=== PATIENT | male | born 1985 | race Caucasian/White ===

== ENCOUNTER 2016-08-19 19:26 | Emergency (ER) | payer OTHER ==
[~2016-08-19] VITALS: Ht 180.3 cm; Wt 88.5 kg
[2016-08-19] MEDS ORDERED: IOHEXOL 240 MG/ML 50ML VIAL. PO ONE (20:00)
[2016-08-19] MEDS ORDERED: IOHEXOL 300 MG/ML 75 ML VIAL IV ONE (20:00)
[2016-08-19 20:07] LABS: BASO % 0 % (0-3); EOS % 1 % (0-3); HEMATOCRIT 46.5 % (39.0-53.0); LYMPH # 1.1 x10^3/uL (1.0-4.8); LYMPH % 11 % (24-48); MEAN CORPUSCULAR HEMOGLOBIN 32 pg (25-35); MEAN CORPUSCULAR HGB CONC 35 g/dL (31-37); MEAN CORPUSCULAR VOLUME 93 fL (79-100); MONO % 6 % (0-9); NEUT % 82 % (31-73); PLATELET COUNT 275 x10^3/uL (140-400); RED CELL DISTRIBUTION WIDTH 13.7 % (11.5-14.5); WHITE BLOOD COUNT 9.7 x10^3/uL (4.0-11.0)
[2016-08-19] MEDS ORDERED: fentaNYL PF VIAL 100 MCG/2 ML VIAL IV PRN (20:15)
[2016-08-19] MEDS ORDERED: IV NORMAL SALINE 1000ML BAG 1,000 ML IV SCH (20:15)
[2016-08-19 20:24] LABS: CALCIUM 8.8 mg/dL (8.5-10.1); CREATININE 1.2 mg/dL (0.7-1.3); GFR 70.6; POTASSIUM 3.7 mmol/L (3.5-5.1)
[2016-08-19 20:29] LABS: ALBUMIN 3.9 g/dL (3.4-5.0); ALBUMIN/GLOBULIN RATIO 1.3 (1.0-1.7); TOTAL BILIRUBIN 0.6 mg/dL (0.2-1.0)
[2016-08-19] MEDS ORDERED: ONDANSETRON PF 4 MG/2 ML VIAL. IV ONE (20:30)
--- NOTE | 2016-08-19 20:47 | PHYS DOC ---
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 At first felt like a crampy pain in the left upper quadrant and since then it has become more of a burning pain and it has become more generalized. He had a normal bowel movement about 9:00 this morning. No more bowel movement since then. He's had nausea with no vomiting. She also feels like he has "bad bloating". The pain has been constant during the day and worsened somewhat. He ate bratwurst first upper about 6:30 and it got worse. Patient has no history of pain like this in the past. He does have frequent "heartburn" when he lays flat and for that he takes [id number] Gaviscon at bedtime. He states he has had his esophagus dilated twice, once about 3 years ago and once about 5 years ago. He is not clear exactly why they thought he did have a stricture. They told him there was something wrong with his esophagus, they advised him to take Prilosec but "I didn't really believe in it " so he has not taken it. Denies previous abdominal surgeries. Review of Systems Review of Systems Constitutional: Denies fever or chills [] Eyes: Denies change in visual acuity, redness, or eye pain [] HENT: Denies nasal congestion or sore throat [] Respiratory: Denies cough or shortness of breath [] Cardiovascular: Denies chest pain GI: As in history of present illness : Denies dysuria or hematuria [] Musculoskeletal: Denies back pain or joint pain [] Integument: Denies rash or skin lesions [] Neurologic: Denies headache, focal weakness or sensory changes [] Current Medications Current Medications Current Medications Medications (Trade) Dose Ordered Sig/Ike Start Time Stop Time Status Last Admin Dose Admin Fentanyl Citrate (Fentanyl 2ml Vial) 50 mcg PRN Q15MIN PRN 08/19/16 20:15 08/20/16 20:14 08/19/16 20:14 50 MCG Iohexol (Omnipaque 240 Mg/ml) 30 ml 1X ONCE 08/19/16 20:00 08/19/16 20:01 DC 08/19/16 20:00 30 ML Iohexol (Omnipaque 300 Mg/ml) 75 ml 1X ONCE 08/19/16 20:00 08/19/16 20:01 DC 08/19/16 20:53 75 ML Ondansetron HCl (Zofran) 4 mg 1X ONCE 08/19/16 20:30 08/19/16 20:31 DC 08/19/16 20:14 4 MG Sodium Chloride 1,000 ml @ 1,000 mls/hr Q1H 08/19/16 20:15 08/19/16 21:14 DC 08/19/16 20:05 1,000 MLS/HR Allergies Allergies Allergies Coded Allergies Type Severity Reaction Last Updated Verified Penicillins Allergy Intermediate 08/19/16 Yes Physical Exam Physical Exam Constitutional: Well developed, well nourished, no acute distress, non-toxic appearance. Alert, mentating normally. HENT: Normocephalic, atraumatic, bilateral external ears normal, nose normal. [] Eyes: conjunctiva normal, no discharge. [] Neck: Normal range of motion, no stridor. [] Cardiovascular:Heart rate regular rhythm, no murmur [] Lungs & Thorax: Bilateral breath sounds clear to auscultation [] Abdomen: Bowel sounds normal, soft, nondistended, no increased tympany, no masses, no pulsatile masses. Mild tenderness to palpation and percussion throughout the abdomen. Tenderness is not localized. No rebound or guarding. Skin: Warm, dry, no erythema, no rash. [] Extremities: No tenderness, no cyanosis, no clubbing, ROM intact, no edema. [] Neurologic: Alert and oriented X 3, normal motor function, normal sensory function, no focal deficits noted. [] Current Patient Data Vital Signs Vital Signs Date Time Temp Pulse Resp B/P (MAP) Pulse Ox O2 Delivery O2 Flow Rate FiO2 08/19/16 20:16 80 14 180/97 (124) 98 Room Air 08/19/16 19:30 97.7 97.7 Lab Values Laboratory Tests Test 08/19/16 19:37 08/19/16 20:50 White Blood Count 9.7 x10^3/uL (4.0-11.0) Red Blood Count 5.00 x10^6/uL (4.30-5.70) Hemoglobin 16.0 g/dL (13.0-17.5) Hematocrit 46.5 % (39.0-53.0) Mean Corpuscular Volume 93 fL (79-100) Mean Corpuscular Hemoglobin 32 pg (25-35) Mean Corpuscular Hemoglobin Concent 35 g/dL (31-37) Red Cell Distribution Width 13.7 % (11.5-14.5) Platelet Count 275 x10^3/uL (140-400) Neutrophils (%) (Auto) 82 % (31-73) H Lymphocytes (%) (Auto) 11 % (24-48) L Monocytes (%) (Auto) 6 % (0-9) Eosinophils (%) (Auto) 1 % (0-3) Basophils (%) (Auto) 0 % (0-3) Neutrophils # (Auto) 7.9 x10^3uL (1.8-7.7) H Lymphocytes # (Auto) 1.1 x10^3/uL (1.0-4.8) Monocytes # (Auto) 0.6 x10^3/uL (0.0-1.1) Eosinophils # (Auto) 0.1 x10^3/uL (0.0-0.7) Basophils # (Auto) 0.0 x10^3/uL (0.0-0.2) Sodium Level 140 mmol/L (136-145) Potassium Level 3.7 mmol/L (3.5-5.1) Chloride Level 105 mmol/L (98-107) Carbon Dioxide Level 25 mmol/L (21-32) Anion Gap 10 (6-14) Blood Urea Nitrogen 16 mg/dL (8-26) Creatinine 1.2 mg/dL (0.7-1.3) Estimated GFR (Cockcroft-Gault) 70.6 BUN/Creatinine Ratio 13 (6-20) Glucose Level 123 mg/dL (70-99) H Calcium Level 8.8 mg/dL (8.5-10.1) Total Bilirubin 0.6 mg/dL (0.2-1.0) Aspartate Amino Transferase (AST) 38 U/L (15-37) H Alanine Aminotransferase (ALT) 62 U/L (16-63) Alkaline Phosphatase 38 U/L (46-116) L Total Protein 7.0 g/dL (6.4-8.2) Albumin 3.9 g/dL (3.4-5.0) Albumin/Globulin Ratio 1.3 (1.0-1.7) Lipase 189 U/L (73-393) Urine Collection Type Void Urine Color Yellow Urine Clarity Turbid Urine pH 8.5 Urine Specific [place] 1.020 Urine Protein Negative mg/dL (NEG-TRACE) Urine Glucose (UA) Negative mg/dL (NEG) Urine Ketones (Stick) Negative mg/dL (NEG) Urine Blood Negative (NEG) Urine Nitrite Negative (NEG) Urine Bilirubin Negative (NEG) Urine Urobilinogen Dipstick 0.2 mg/dL (0.2 mg/dL) Urine Leukocyte Esterase Negative (NEG) Urine RBC 0 /HPF (0-2) Urine WBC Rare /HPF (0-4) Urine Squamous Epithelial Cells Occ /LPF Urine Amorphous Sediment Present /HPF Urine Bacteria Few /HPF (0-FEW) Urine Mucus Slight /LPF Laboratory Tests 08/19/16 19:37 Laboratory Tests 08/19/16 19:37 EKG EKG [] Radiology/Procedures Radiology/Procedures CT scan of the abdomen and pelvis with oral and IV contrast read by the radiologist. No acute findings. [] Course & Med Decision Making Course & Med Decision Making Pertinent Labs and Imaging studies reviewed. (See chart for details) 30-year-old male with about 12 hours of burning/cramping generalized abdominal pain that has worsened somewhat is a day one on. I discussed with the patient we will get some labs and a CT scan with oral and IV contrast. He is agreeable to that plan. I offered him IV pain and nausea medicine as well as IV fluids, he initially declined the pain medicine but then decided he did want to take some. After IV fentanyl and Zofran, IV fluids, the patient states he feels much better. Labs, CT scan, unrevealing as to the cause of the patient's symptoms. I discussed with the patient and his the assessment and plan, see instructions for plan. [] Dragon Disclaimer Dragon Disclaimer This electronic medical record was generated, in whole or in part, using a voice recognition dictation system. Departure Departure Impression: Primary Impression: Abdominal pain, left upper quadrant Additional Impression: Gastritis Disposition: 01 HOME, SELF-CARE Condition: IMPROVED Referrals: ZEINA BHAGAT MD (PCP) Patient Instructions: Abdominal Pain (Nonspecific), Gastritis, Adult, Easy-to- Read Additional Instructions: As we discussed, labs and CT scan did not show any serious cause of your abdominal pain. Stomach inflammation, gastritis, excess stomach acid do not show on our tests in the emergency department. This could be the cause of your pain. I recommend purchasing an [id number] acid reducing medicine such as Nexium, Prilosec, or Protonix, and take as directed. For 2-3 days, stick with clear liquids, small amounts of bland foods, to rest your stomach. If worse, return for reevaluation. I recommend outpatient GI evaluation for chronic heartburn problems as well as this episode. Problem Qualifiers KAYLENE MARTINEZ MD Aug 19, 2016 20:46
[2016-08-19 20:59] LABS: BILIRUBIN,URINE NEGATIVE (NEG); GLUCOSE,URINE NEGATIVE (NEG); NITRITE,URINE NEGATIVE (NEG); PH,URINE 8.5; PROTEIN,URINE NEGATIVE (NEG-TRACE); UROBILINOGEN,URINE 0.2 mg/dL (0.2 mg/dL)
--- NOTE | 2016-08-19 21:11 | RAD ---
Indication: Left-sided abdominal pain. Axial imaging through the abdomen and pelvis was performed after the administration of intravenous and oral contrast. One or more of the following individualized dose reduction techniques were utilized for this examination: 1. Automated exposure control 2. Adjustment of the mA and/or kV according to patient size 3. Use of iterative reconstruction technique No prior studies are available for comparison. The lung bases are clear. The liver and gallbladder are unremarkable. The pancreas and spleen appear unremarkable. No adrenal mass is detected. The kidneys are unremarkable. The aorta is nonaneurysmal. The small and large bowel loops are normal caliber. There is no ascites. Bladder is unremarkable. No acute inflammatory process is detected. There appears to be a chronic deformity of the left ischium. IMPRESSION: No acute abnormality is detected. Electronically signed by: Armando Richards MD (08/19/2016 9:08 PM) [facility]
[2016-08-19 21:17] LABS: BACTERIA,URINE FEW /HPF (0-FEW); RBC,URINE 0 /HPF (0-2); SQUAMOUS EPITHELIAL CELL,UR OCC /LPF; WBC,URINE RARE /HPF (0-4)
[2016-08-19 21:39] VITALS: BP 141/71
== END 2016-08-19 21:48 | disposition home or self-care (01) ==
LOC: ER 19:26
DX: K29.70 Gastritis, unspecified, without bleeding (principal); K21.9 Gastro-esophageal reflux disease without esophagitis; Z88.0 Allergy status to penicillin
CPT/HCPCS: 36415; 74177; 80053; 81001; 83690; 85027; 96361; 96374; 96375; 99285; J2405; J3010; J7030; Q9966; Q9967

== ENCOUNTER → 2016-09-28 | Outpatient (CLI) | payer OTHER ==
--- NOTE | 2016-09-30 15:26 | SLEEP ---
DATE OF STUDY: 09/29/2016 HOME SLEEP STUDY REFERRED BY: BRODIE Denney. The patient is a 30 years old who weighs 196 pounds with a BMI of 27. Vista score was 11. Home sleep study was performed by [facility]. During the night study, the patient's total recording time was 319 minutes. The patient had 1 central, 3 obstructive, and 3 mixed apneas and there were 14 hypopneas. The patient's apnea-hypopnea index was 4 per hour, supine index 4 per hour. Nocturnal oximetry study revealed no clinically significant desaturations. Mean heart rate was 63 beats per minute. IMPRESSION: 1. No clinically significant sleep-disordered breathing. 2. No clinically significant nocturnal hypoxia. RECOMMENDATIONS: 1. The patient did not meet the criteria for CPAP initiation. 2. Weight loss is advised. 3. Avoid [employer] depressants. LD ESTEVES MD DR: JOVANNI/tae JOB#: [id number] / [id number] EUNICE Valle MTDD
== END | disposition home or self-care (01) ==
LOC: RT 08:09
PROVIDERS: ATTEND Physician Assistant
DX: G47.33 Obstructive sleep apnea (adult) (pediatric) (principal); H61.21 Impacted cerumen, right ear; J30.1 Allergic rhinitis due to pollen; Q18.1 Preauricular sinus and cyst
CPT/HCPCS: G0399

== ENCOUNTER → 2018-02-23 | Outpatient (CLI) | payer OTHER ==
--- NOTE | 2018-02-23 16:17 | KCIC ---
2 view study of both hips with AP view pelvis Clinical indications: Chronic left hip pain which has become worse over last month. FINDINGS: Right hip: No acute fracture or dislocation or osteolytic process or significant arthritic change is seen. Left hip: There is a prominent accessory ossification center of the ischial tuberosity and ischium. It is not fused. In addition, there is enlargement of the ischium with increased sclerosis and chronic periosteal thickening. This could be due to chronic stress reaction. Left hip joint is unremarkable itself otherwise. No acute fracture or dislocation or lytic process is evident. IMPRESSION: Findings of the left ischial bone may be related to chronic stress reaction and chronic stress fracture. Electronically signed by: Luis Delgadillo MD (02/23/2018 4:12 PM) [id number]
== END | disposition home or self-care (01) ==
LOC: KCIC 08:37
PROVIDERS: ATTEND Physician Assistant Medical
DX: M25.552 Pain in left hip (principal); G89.29 Other chronic pain
CPT/HCPCS: 73521

== ENCOUNTER → 2018-03-23 | Outpatient (CLI) | payer OTHER ==
--- NOTE | 2018-03-23 12:17 | KCIC ---
CT temporal bone without contrast Indication: Benign neoplasm skull, right ear growth, right ear pressure Technique: Noncontrast CT imaging was performed of the temporal bone, multiplanar reconstruction images submitted. One or more of the following individualized dose reduction techniques were utilized for this examination: 1. Automated exposure control 2. Adjustment of the mA and/or kV according to patient size 3. Use of iterative reconstruction technique. Comparison: None Findings: There is a 1 cm transverse by 0.7 cm AP by 1 cm CC bony mass in the right external auditory canal, abutting the posterior and inferior garcia. There is resultant narrowing of the external auditory canal, small remnant aerated canal anteriorly and superiorly about 0.1 cm in caliber. There is adjacent noncalcified density anteriorly and medial to the bony lesion, nonspecific although may be due to cerumen. There is no associated bone destruction. Bony mass contacts the posterior and inferior garcia over about 0.9 cm transverse. There is no bony mass of the left external auditory canal. There is minimal density in the lateral aspect of the left external auditory canal more likely due to cerumen. Mastoid air cells are aerated bilaterally. No bone destruction is identified of the mastoid air cells. Ossicles are intact bilaterally. Visualized paranasal sinuses are aerated. IMPRESSION: 1. There is a defined, unilateral bony mass in the right external auditory canal abutting posterior and inferior garcia. 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 There is resultant narrowing of the canal. Electronically signed by: Marty Craft MD (03/23/2018 12:12 PM) [id number]
== END | disposition home or self-care (01) ==
LOC: KCIC CT 10:23
PROVIDERS: ATTEND Otolaryngology
DX: D16.4 Benign neoplasm of bones of skull and face (principal); H93.8X1 Other specified disorders of right ear; I10 Essential (primary) hypertension; Z87.891 Personal history of nicotine dependence
CPT/HCPCS: 70480